=== PATIENT | male | born 1955 | race Two or more races ===

== ENCOUNTER 2025-09-21 08:49 | Outpatient (OUT) | payer MEDICARE, SELFPAY ==
--- NOTE | 2025-09-21 09:15 | XR_ITS ---
The [address] [address] Patient Name: WU MATHEW MRN: [id number] date: 1955 Sex: M Assigned Patient Location: [facility] Current Patient Location: [facility] Accession/Order Number: [id number] Exam Date: 09/21/2025 09:20 Report Date: 09/21/2025 09:53 At the request of: GRACY SENA DPAlisa Procedure: XR foot RT min 3V RIGHT FOOT - 3 views CLINICAL DATA: Chronic pain at the dorsal right foot. No recent injury. COMPARISON: None Standing AP, lateral and oblique views were obtained. There is prominent demineralization which slightly limits assessment. There is no obvious acute fracture or dislocation. There is minor degenerative change at the first metatarsal phalangeal joint. There is also some spurring at the dorsum of the tarsals. There is no significant soft tissue swelling. XR/XR foot RT min 3V IMPRESSION: OSTEOPENIA/OSTEOPOROSIS AND MINOR DEGENERATIVE CHANGES. NO DEFINITE ACUTE BONY FINDINGS. Impression dictated by: Merry Sanchez M.D. 09/21/2025 9:53 AM Dictation Location: [place] [address] Electronically authenticated by: [id number] Y Date: 09/21/2025 09:53
== END 2025-09-21 08:50 | disposition home or self-care (01) ==
LOC: RAD 08:56
PROVIDERS: PCP Internal Medicine; Visit Provider Podiatrist Foot & Ankle Surgery
DX: M79.671 Pain in right foot (principal); M85.88 Other specified disorders of bone density and structure, other site; M81.0 Age-related osteoporosis without current pathological fracture
CPT/HCPCS: 73630